=== PATIENT | male | born 1940 | race Native Hawaiian/Other Pacific Islander ===

== ENCOUNTER 2020-11-04 18:09 | Emergency (ER) | payer OTHER ==
[~2020-11-04] VITALS: Ht 188 cm; Wt 120.2 kg
[2020-11-04 19:29] LABS: PLATELET COUNT 256 K/uL (142-355)
[2020-11-04 19:35] LABS: POTASSIUM 4.9 mmol/L (3.6-5.2); SODIUM 140 mmol/L (136-145)
[2020-11-04 20:47] LABS: PARTIAL THROMBOPLASTIN TIME 22.2 SECONDS (24.5-33.6)
[2020-11-04 21:51] VITALS: BP 155/79; TEMP 97.8
== END 2020-11-04 21:55 | disposition home or self-care (01) ==
LOC: ED 18:15
PROVIDERS: Family Medicine
DX: T67.5XXA Heat exhaustion, unspecified, initial encounter (principal); X58.XXXA Exposure to other specified factors, initial encounter; Y93.89 Activity, other specified; Y92.017 Garden or yard in single-family (private) house as the place of occurrence of the external cause; E86.0 Dehydration; E11.9 Type 2 diabetes mellitus without complications; N18.9 Chronic kidney disease, unspecified
CPT/HCPCS: 80053; 82550; 84484; 85027; 85610; 85730; 93005; 96360; 99284

== ENCOUNTER 2020-11-30 11:40 | Emergency (ER) | payer OTHER ==
[~2020-11-30] VITALS: Ht 188 cm; Wt 120.2 kg
[2020-11-30 11:41] VITALS: TEMP 97.1
[2020-11-30 12:26] LABS: PLATELET COUNT 206 K/uL (142-355)
[2020-11-30 12:48] LABS: POTASSIUM 4.4 mmol/L (3.6-5.2)
[2020-11-30 14:00] VITALS: BP 118/61
== END 2020-11-30 14:32 | disposition home or self-care (01) ==
LOC: ED 11:40
PROVIDERS: Emergency Medicine Emergency Medical Services
DX: R42 Dizziness and giddiness (principal); R11.2 Nausea with vomiting, unspecified
CPT/HCPCS: 80053; 85027; 96360; 96374; 99284; J2405

== ENCOUNTER 2020-12-01 13:58 | Emergency (ER) | payer OTHER ==
[~2020-12-01] VITALS: Ht 188 cm; Wt 120.2 kg
[2020-12-01 14:35] LABS: PLATELET COUNT 211 K/uL (142-355)
[2020-12-01 14:52] LABS: POTASSIUM 4.7 mmol/L (3.6-5.2); SODIUM 138 mmol/L (136-145)
[2020-12-01 14:58] LABS: PARTIAL THROMBOPLASTIN TIME 24.7 SECONDS (24.5-33.6)
[2020-12-01 19:00] VITALS: BP 155/86; TEMP 98.5
== END 2020-12-01 23:58 | disposition home or self-care (01) ==
LOC: ED 13:58
PROVIDERS: Hospitalist
DX: F03.90 Unspecified dementia, unspecified severity, without behavioral disturbance, psychotic disturbance, mood disturbance, and anxiety (principal); E86.0 Dehydration; N39.0 Urinary tract infection, site not specified; N18.9 Chronic kidney disease, unspecified; R06.89 Other abnormalities of breathing
CPT/HCPCS: 80053; 80320; 82550; 82553; 83880; 84484; 85027; 85610; 85730; 93005; 96360; 96365; 96375; 99284; J0696; J1885; J2405

== ENCOUNTER 2020-12-02 01:05 | Emergency (ER) | payer OTHER ==
[~2020-12-02] VITALS: Ht 188 cm; Wt 120.2 kg
[2020-12-02 05:30] VITALS: BP 166/82; TEMP 97.9
== END 2020-12-02 05:30 | disposition home or self-care (01) ==
LOC: ED 01:05
DX: F03.90 Unspecified dementia, unspecified severity, without behavioral disturbance, psychotic disturbance, mood disturbance, and anxiety (principal); E86.0 Dehydration; N18.9 Chronic kidney disease, unspecified; N39.0 Urinary tract infection, site not specified
CPT/HCPCS: 99283